=== PATIENT | male | born 1975 | race Caucasian/White ===

== ENCOUNTER 2018-12-17 09:32 | Inpatient (IN) ==
--- NOTE | 2018-12-17 10:05 | Emergency Department Note ---
Disposition Clinical Impression: Anxiety Schizoaffective disorder Qualifiers: Schizoaffective disorder type: unspecified Qualified Code(s): F25.9 - Schizoaffective disorder, unspecified Disposition: Admitted As Inpatient Condition: Undetermined Referrals: Daniel Malik MD [Primary Care Provider] - Forms: ED Satisfaction Letter Time of Disposition: 14:56 General Adult HPI - General Chief complaint: ED Psychiatric Symptoms Stated complaint: anixety Time Seen by Provider: 12/17/18 09:35 Source: patient Mode of arrival: private vehicle Limitations: no limitations Nursing Notes Reviewed: Yes Vital Signs Reviewed: Yes - History of Present Illness HPI Narrative: Patient is a 43 year old male with PMHx of schizoaffective disease presenting with chief complaint of anxiety. Pt states his mother, whom pt resides with, called EMS in order for him to get refills on his meds. The patient states he has been evaluated by [facility] and does have an appointment on December 22 to be evaluated by a new psychiatrist. Pt states he has been off his seroquel for 4 days and reason for ER visit is to get refills. Denies any suicidal or homicidal ideations, denies visual or auditory hallucinations. The patient complains of increased anxiety. He states he is under a lot of stress. He denies fevers or chills, chest pain, shortness breath, abdominal pain, nausea or vomiting, change in bowels. The patient denies alcohol use or illicit drug use. Pain Scale: 0 - Related Data Home Medications Medication Instructions Recorded Confirmed No Known Home Drugs 11/07/18 11/07/18 Allergies Allergy/AdvReac Type Severity Reaction Status Date / Time No Known Allergies Allergy Verified 11/23/18 14:15 All systems ED: reviewed and negative except as stated. Review of Systems: As Per HPI Constitutional: Denies: fever, chills Cardiovascular: Denies: chest pain Respiratory: Denies: cough, dyspnea Gastrointestinal: Denies: abdominal pain, nausea, vomiting, diarrhea Psychiatric: Reports: anxiety. Denies: suicidal thoughts, homicidal thoughts, auditory hallucinations, visual hallucinations Past Medical History - Past Medical History Attestation: Yes The following information was validated with the patient. Source: patient Medical history: Reports: no medical history Surgical history: Reports: non-contributory Psychiatric history: Reports: anxiety, depression, schizophrenia - Social History Smoking Status: Current every day smoker Smokeless Tobacco Status: No Alcohol use: Reports: rarely Drug use: Reports: none Physical Exam - General Limitations: no limitations General appearance: alert, in no apparent distress - Head Head exam: atraumatic, normocephalic - Eye Eye exam: Present: normal appearance, EOMI - ENT ENT exam: normal exam, normal oropharynx - Neck Neck exam: Present: normal inspection, trachea midline - Chest Chest inspection: Present: normal inspection, symmetric chest wall rise - Respiratory Respiratory exam: Present: normal lung sounds bilaterally. Absent: respiratory distress, wheezes - Cardiovascular Cardiovascular exam: Present: regular rate, normal rhythm, normal heart sounds - Abdominal Exam Abdominal exam: Present: soft, Non-Tender. Absent: distention - Extremities Exam Extremities exam: Present: normal capillary refill. Absent: pedal edema, calf tenderness - Neurological Exam Neurological exam: Present: alert, oriented X3 - Psychiatric Psychiatric exam: Present: other (Patient is displaying odd behavior. He will randomly laugh at inappropriate times. He will talk to himself. He appears anxious.) - Skin Skin exam: Present: warm, dry. Absent: diaphoresis, pallor Course Vital Signs Temperature 98.0 F 12/17/18 09:34 Pulse Rate 94 12/17/18 09:34 Respiratory Rate 17 12/17/18 09:34 Blood Pressure 124/87 12/17/18 09:34 O2 Sat by Pulse Oximetry 97 12/17/18 09:34 Temperature 98.0 F 12/17/18 09:34 Pulse Rate 94 12/17/18 09:34 Respiratory Rate 17 12/17/18 09:34 Blood Pressure 124/87 12/17/18 09:34 O2 Sat by Pulse Oximetry 97 12/17/18 09:34 Oxygen Delivery Oxygen Delivery Room Air Medical Decision Making - [facility] Narrative Medical decision making narrative: Patient is presenting with anxiety and has been out of his medications for the past week. He states he is under increased stress. During examination, he is displaying odd behavior. He will laugh at inappropriate times, talk to himself. He is voluntarily here. We will obtain CBC, BMP, acetaminophen, alcohol, salicylate levels, urine drug screen. Once medically cleared, will have psychiatry evaluate the patient. He does have history of schizoaffective disorder. He denies suicidal ideation, homicidal ideation, visual or auditory hallucinations. 11:05 Patient medically cleared. Will have 1A evaluate 14:50 Discussed with 1A who accepts admission. - Medical Records Medical records reviewed: Yes I reviewed the patient's medical records. - Lab Data Lab results reviewed: Yes I reviewed the patient's lab results. Result diagrams: 12/17/18 10:02 12/17/18 10:02 Lab Results 12/17/18 12/17/18 12/17/18 Range/Units 10:02 10:02 10:41 WBC 9.7 (4.3-11.1) K/mcL RBC 4.81 (4.19-5.50) M/mcL Hgb 14.8 (12.9-16.9) g/dL Hct 43.5 (37.5-50.1) % MCV 90.4 (83.0-100.0) fL MCH 30.8 (28.0-33.3) pg MCHC 34.0 (31.6-35.5) g/dL RDW 13.2 (11.5-14.5) % Plt Count 232 (140-400) K/mcL MPV 9.3 L (9.4-12.4) fL Immature Gran % 0.3 (0-4) % Seg Neutrophils % 62.4 % Lymphocytes % 23.6 % Monocytes % 11.6 % Eosinophils % 1.7 % Basophils % 0.4 % Neutrophils # 6.1 (1.6-8.9) K/mcL Lymphocytes # 2.3 (0.6-4.6) K/mcL Monocytes # 1.1 (0.0-1.3) K/mcL Eosinophils # 0.2 (0.0-0.6) K/mcL Basophils # 0.0 (0.0-0.2) K/mcL Sodium 137 (136-145) mEq/L Potassium 4.0 (3.5-5.1) mEq/L Chloride 109 H (98-107) mEq/L Carbon Dioxide 21 L (23-29) mEq/L BUN 19 (6-20) mg/dL Creatinine 0.80 (0.70-1.30) mg/dL Est GFR ( Amer) > 60 (> 60) Est GFR (Non-Af Amer) > 60 (> 60) BUN/Creatinine Ratio 24 (6-26) Glucose 104 (70-105) mg/dL Calculated Osmolality 287 (280-300) Calcium 9.1 (8.6-10.3) mg/dL Urine Color Yellow (Yellow) Urine Clarity Cloudy A (Clear) Urine pH 7.0 (5.0-8.0) pH Units Ur Specific [place] 1.021 (1.010-1.025) Urine Protein 30 H (Neg-Trace) mg/dL Urine Glucose (UA) Normal (Normal) mg/dL Urine Ketones Negative (Negative) mg/dL Urine Blood Negative (Negative) Urine Nitrite Negative (Negative) Urine Bilirubin Negative (Negative) Urine Urobilinogen Normal (Normal) mg/dL Ur Leukocyte Esterase Moderate H (Negative) Urine Microscopic RBC 0-3 (0-3) per hpf Urine Microscopic WBC 0-3 (0-3) per hpf Urine Bacteria Few (None-Few) per hpf Salicylates < 2.5 L (15.0-30.0) mg/dL Urine Opiates Screen (Lsyoda=154) ng/mL Ur Buprenorphine Scrn (Cutoff=5) ng/mL Acetaminophen < 10 L (10-20) mcg/mL Ur Barbiturates Screen (Udkoqj=103) ng/mL Ur Phencyclidine Scrn (Cutoff=25) ng/mL Ur Amphetamines Screen (Ptbijy=1386) ng/mL U Benzodiazepines Scrn (Qjmqbm=995) ng/mL Urine Cocaine Screen (Cutoff= 300) ng/mL U Marijuana (THC) Screen (Cutoff = 50) ng/mL Ur Drug Screen Interp Ethyl Alcohol < 10 (Less than 10) mg/dL 12/17/18 Range/Units 10:41 WBC (4.3-11.1) K/mcL RBC (4.19-5.50) M/mcL Hgb (12.9-16.9) g/dL Hct (37.5-50.1) % MCV (83.0-100.0) fL MCH (28.0-33.3) pg MCHC (31.6-35.5) g/dL RDW (11.5-14.5) % Plt Count (140-400) K/mcL MPV (9.4-12.4) fL Immature Gran % (0-4) % Seg Neutrophils % % Lymphocytes % % Monocytes % % Eosinophils % % Basophils % % Neutrophils # (1.6-8.9) K/mcL Lymphocytes # (0.6-4.6) K/mcL Monocytes # (0.0-1.3) K/mcL Eosinophils # (0.0-0.6) K/mcL Basophils # (0.0-0.2) K/mcL Sodium (136-145) mEq/L Potassium (3.5-5.1) mEq/L Chloride (98-107) mEq/L Carbon Dioxide (23-29) mEq/L BUN (6-20) mg/dL Creatinine (0.70-1.30) mg/dL Est GFR ( Amer) (> 60) Est GFR (Non-Af Amer) (> 60) BUN/Creatinine Ratio (6-26) Glucose (70-105) mg/dL Calculated Osmolality (280-300) Calcium (8.6-10.3) mg/dL Urine Color (Yellow) Urine Clarity (Clear) Urine pH (5.0-8.0) pH Units Ur Specific [place] (1.010-1.025) Urine Protein (Neg-Trace) mg/dL Urine Glucose (UA) (Normal) mg/dL Urine Ketones (Negative) mg/dL Urine Blood (Negative) Urine Nitrite (Negative) Urine Bilirubin (Negative) Urine Urobilinogen (Normal) mg/dL Ur Leukocyte Esterase (Negative) Urine Microscopic RBC (0-3) per hpf Urine Microscopic WBC (0-3) per hpf Urine Bacteria (None-Few) per hpf Salicylates (15.0-30.0) mg/dL Urine Opiates Screen Negative (Btqnog=647) ng/mL Ur Buprenorphine Scrn Negative (Cutoff=5) ng/mL Acetaminophen (10-20) mcg/mL Ur Barbiturates Screen Negative (Ylnuiz=411) ng/mL Ur Phencyclidine Scrn Negative (Cutoff=25) ng/mL Ur Amphetamines Screen Negative (Wkztqa=4270) ng/mL U Benzodiazepines Scrn Negative (Dgctdk=766) ng/mL Urine Cocaine Screen Negative (Cutoff= 300) ng/mL U Marijuana (THC) Screen Negative (Cutoff = 50) ng/mL Ur Drug Screen Interp See Below Ethyl Alcohol (Less than 10) mg/dL Attestation Statement - Attestation Attestation: Patient was seen with resident physician. I reviewed the history, physical, assessment and plan, and agree with the findings. I also personally evaluated this patient and had [id number] time with this patient. 43-year-old male presents to the emergency department out of his psych meds for 4 days now presenting with anxiety. Patient states he said some occasional spring rtness of breath. He is a smoker. He says is not worse than usual. He denies hallucinations, but he was seen multiple times talking to himself while in the room. Denies fevers or chills nausea vomiting diarrhea. Review of systems as above remainder negative. Physical exam vital signs are stable. ENT is unremarkable. Heart regular rhythm and rate. Lungs clear. Adamant soft nontender. Extremities unremarkable. Neurologically alert and oriented without focal deficits. Skin no rashes. Psych anxious questionable hallucinations. ED course. We will do psych workup including basic labs. We will also have one a come evaluate the patient for possible medication adjustment renewal or f urther intervention as indicated. Initially he did not meet criteria on arrival for involuntary admission status. Hemodynamically he remained stable while in the emergency department. After psych evaluation they did also find that the patient was having some hallucinations issues. Additionally he is been off his psychiatric medication. Hemodynamically he was stable may wanted to admit him to the psychiatric unit which is what we did. Agree with the resident physician assessment and plan.
[2018-12-17 10:16] LABS: Basophils % 0.4 %; Eosinophils # 0.2 K/mcL (0.0-0.6); Eosinophils % 1.7 %; Hematocrit 43.5 % (37.5-50.1); Hemoglobin 14.8 g/dL (12.9-16.9); Immature Granulocytes % 0.3 % (0-4); Lymphocytes # 2.3 K/mcL (0.6-4.6); Lymphocytes % 23.6 %; Mean Corpuscular Hemoglobin 30.8 pg (28.0-33.3); Mean Corpuscular Volume 90.4 fL (83.0-100.0); Mean Platelet Volume 9.3 fL (9.4-12.4); Monocytes # 1.1 K/mcL (0.0-1.3); Monocytes % 11.6 %; Neutrophils # 6.1 K/mcL (1.6-8.9); Platelet Count 232 K/mcL (140-400); Red Blood Count 4.81 M/mcL (4.19-5.50); Red Cell Distribution Width 13.2 % (11.5-14.5); Segmented Neutrophils % 62.4 %; White Blood Count 9.7 K/mcL (4.3-11.1)
[2018-12-17 10:52] LABS: Bilirubin,Urine Negative (Negative); Blood,Urine Negative (Negative); Clarity,Urine Cloudy (Clear); Color,Urine Yellow (Yellow); Glucose,Urine (UA) Normal (Normal); Ketones,Urine Negative (Negative); Leukocyte Esterase,Urine Moderate (Negative); Nitrite,Urine Negative (Negative); Protein,Urine 30 mg/dL (Neg-Trace); Specific Gravity,Urine 1.021 (1.010-1.025); Urobilinogen,Urine Normal (Normal)
[2018-12-17 10:55] LABS: Acetaminophen < 10 mcg/mL (10-20); BUN/Creatinine Ratio 24 (6-26); Blood Urea Nitrogen 19 mg/dL (6-20); Calcium 9.1 mg/dL (8.6-10.3); Carbon Dioxide 21 mEq/L (23-29); Chloride 109 mEq/L (98-107); Ethanol < 10 mg/dL (Less than 10); Glucose 104 mg/dL (70-105); Osmolality,Calculated 287 (280-300); Salicylate < 2.5 mg/dL (15.0-30.0); Sodium 137 mEq/L (136-145); eGFR For African Americans > 60 (> 60); eGFR For Non-African Americans > 60 (> 60)
[2018-12-17 11:00] LABS: Bacteria,Urine Few per hpf (None-Few); RBC,Urine 0-3 per hpf (0-3); WBC,Urine 0-3 per hpf (0-3)
[2018-12-17 11:01] LABS: Amphetamine Screen,Urine Negative ng/mL (Cutoff=1000); Barbiturate Screen,Urine Negative ng/mL (Cutoff=200); Benzodiazepines Screen,Urine Negative ng/mL (Cutoff=200); Cannabinoid Screen,Urine Negative ng/mL (Cutoff = 50); Cocaine Screen,Urine Negative ng/mL (Cutoff= 300); Opiate Screen,Urine Negative ng/mL (Cutoff=300); Phencyclidine Screen,Urine Negative ng/mL (Cutoff=25)
[2018-12-17] MEDS ORDERED: MOM Conc 10 ML UD.LIQ PO PRN (17:06)
[2018-12-17] MEDS ORDERED: Mag Hydrox/Al Hydrox/Simeth 30 ML UDC PO PRN (17:06)
[2018-12-17] MEDS ORDERED: *HR* LORazepam 2 MG/ML VIAL IM PRN (17:06)
[2018-12-17] MEDS ORDERED: *HR* LORazepam 1 MG TABLET PO PRN (17:06)
[2018-12-17] MEDS ORDERED: traZODone 50 MG TABLET PO PRN (17:06)
[2018-12-17] MEDS ORDERED: hydrOXYzine pamoate 25 MG CAPSULE PO PRN (17:06)
[2018-12-17] MEDS ORDERED: Haloperidol Lactate 5 MG/ML VIAL IM PRN (17:06)
[2018-12-17] MEDS ORDERED: Acetaminophen 325 MG TABLET PO PRN (17:06)
[2018-12-17] MEDS ORDERED: *HR* LORazepam 1 MG TABLET PO ONE (17:37)
[2018-12-18] MEDS ORDERED: *HR* LORazepam 1 MG TABLET PO PRN (09:04)
[2018-12-18] MEDS ORDERED: *HR* LORazepam 0.5 MG TABLET ONE (09:08)
--- NOTE | 2018-12-18 09:13 | Psychiatry History & Physical ---
Date of Encounter: 12/18/18 Time of Encounter: 09:00 History of Present Illness Patient Stated Chief Complaint: "I need to get out of here" Medicare Admission Attestation: For traditional Medicare patients the provided hospital inpatient services are reasonable and necessary and in the case of services not specified as inpatient-only under 42 CFR 419.22 (n), that they are appropriately provided as inpatient services in accordance 42 CFR 412.3. For Critical Access Hospital the patient may reasonably be expected to be discharged or transferred to a hospital within 96 hours after admission to the Critical Access Hospital. Admitted From: Emergency Dept Plans for Post Hospital Care: Home History of Present Illness: Mr. New is a 43 year old male who presented with extensive history of schizophrenia who apparently is off medications and has decompensated. The patient has been apparently experiencing auditory and command hallucinations. In the emergency room he was talking to people who were not there. He is unable to provide an accurate history secondary to what appears to be a decompensated mental state. The patient was initially agreeable to inpatient stabilization and became very agitated in the emergency room pink sliped him. Last evening he was belligerent when he got to the unit and required emergency medications. This morning he is once again very agitated. He threw down his tray demanding to leave. He was clearly responding to internal stimuli and appeared paranoid of staff attendance. He would not answer specific questions other than to demand that he leave because his daughter's birthday is on December 22 and he did not want to miss it. He said he was not familiar with medication such as Haldol and Prolixin when I offered these as emergency medications however he was agreeable to take something to help him "knock me out". He continued to yell and threaten staff. Past Med Surg Social Fam HX - Past Medical History Medical history: no medical history - Past Psychiatric History Psychiatric history: Reports: schizophrenia, previous psychiatric hospitalization. Denies: prior suicide attempt Past psychiatric history details: He denies prior suicide attempts. He has numerous prior psychiatric hospitalizations including Hospital for psychiatry within the past few weeks. He has run out of his Seroquel. He could not come out of the medications he tried in the past. He denied prior suicide attempts. Family psychiatric history: No Family History of Suicide: None - Past Surgical History Surgical History: non-contributory - Social History Smoking Status: Current every day smoker Smokeless Tobacco Status: No Alcohol use: rarely Drug use: none Occupational status: disabled Current living situation: With Family Activity Level: Independent ambulation Recent Out of Country Travel Within the Last 8 Weeks: No Exposure or Possible Exposure to Illness During Travel: No Medications & Allergies No Known Home Drugs 11/07/18 [History] Allergy/AdvReac Type Severity Reaction Status Date / Time No Known Allergies Allergy Verified 11/23/18 14:15 Review of Systems Constitutional: Denies: fever Eyes: Denies: eye pain Ears, Nose, Throat: Denies: ear pain Cardiovascular: Denies: chest pain Respiratory: Denies: cough Gastrointestinal: Denies: abdominal pain Genitourinary male: Denies: urgency Musculoskeletal: Denies: back pain Integumentary: Denies: rash Neurological: Denies: headache Psychiatric: Reports: homicidal ideation, auditory hallucinations, visual hallucinations, irritability, mood swings Endocrine: Denies: fatigue Hematologic/Lymphatic: Denies: easy bleeding Allergic/Immunologic: Denies: facial swelling Exam - HEENT Head exam IM: Present: atraumatic Eye exam IM: Present: EOMI ENT exam IM: Present: mucous membranes moist - Neurological Neurological exam: Present: CN II-XII intact (Grossly) - Respiratory Respiratory exam IM: Absent: respiratory distress - GI/Abdominal GI/Abdominal exam IM: Present: no peritoneal signs - Extremities Extremities exam IM: Present: full ROM - Skin Skin exam IM: Absent: abrasion - Constitutional Vitals: Temp Pulse Resp BP Pulse Ox 98.0 F 94 17 124/87 97 12/17/18 09:34 12/17/18 09:34 12/17/18 09:34 12/17/18 09:34 12/17/18 09:34 General appearance: age & developmentally appropriate, disheveled - Musculoskeletal Gait: brisk Station: stiff Strength & Tone: normal for patient - Psychiatric Patient Orientation: Yes Person, Yes Place Level of alertness: Alert Behavior: agitated, hostile, suspicious Psychomotor activity: Increased Eye Contact: Minimal Contact Mood Description: Angry, Irritable Patient description of mood: "Pissed" Affect description: labile Speech Volume: Loud Speech pattern: excessive Language & Vocabulary: limited Thought Process: Tangential Thought Content: Yes Homicidal ideation, Yes Paranoid delusion Perceptual Disturbances: Yes Auditory hallucinations, Yes Visual hallucinations Attention Span Ability: Unable to Focus, Unable to Sustain Attention Memory Description: Recent Impaired, Remote Impaired Patient Reliability: Not Reliable Historian Fund of knowledge: Yes average Intelligence Estimate: Average Judgment: Poor Insight: None Results - Drug Levels and Toxicology Drug Levels and Toxicology: Drug Levels and Toxicity 12/17/18 12/17/18 10:02 10:41 Urine Opiates Screen Negative Acetaminophen < 10 L Ur Barbiturates Screen Negative Ur Phencyclidine Scrn Negative Ur Amphetamines Screen Negative U Benzodiazepines Scrn Negative Urine Cocaine Screen Negative U Marijuana (THC) Screen Negative Ethyl Alcohol < 10 - Labs Labs: Laboratory Last Values WBC 9.7 K/mcL (4.3-11.1) 12/17/18 10:02 RBC 4.81 M/mcL (4.19-5.50) 12/17/18 10:02 Hgb 14.8 g/dL (12.9-16.9) 12/17/18 10:02 Hct 43.5 % (37.5-50.1) 12/17/18 10:02 MCV 90.4 fL (83.0-100.0) 12/17/18 10:02 MCH 30.8 pg (28.0-33.3) 12/17/18 10:02 MCHC 34.0 g/dL (31.6-35.5) 12/17/18 10:02 RDW 13.2 % (11.5-14.5) 12/17/18 10:02 Plt Count 232 K/mcL (140-400) 12/17/18 10:02 MPV 9.3 fL (9.4-12.4) L 12/17/18 10:02 Immature Gran % 0.3 % (0-4) 12/17/18 10:02 Seg Neutrophils % 62.4 % 12/17/18 10:02 Lymphocytes % 23.6 % 12/17/18 10:02 Monocytes % 11.6 % 12/17/18 10:02 Eosinophils % 1.7 % 12/17/18 10:02 Basophils % 0.4 % 12/17/18 10:02 Neutrophils # 6.1 K/mcL (1.6-8.9) 12/17/18 10:02 Lymphocytes # 2.3 K/mcL (0.6-4.6) 12/17/18 10:02 Monocytes # 1.1 K/mcL (0.0-1.3) 12/17/18 10:02 Eosinophils # 0.2 K/mcL (0.0-0.6) 12/17/18 10:02 Basophils # 0.0 K/mcL (0.0-0.2) 12/17/18 10:02 Sodium 137 mEq/L (136-145) 12/17/18 10:02 Potassium 4.0 mEq/L (3.5-5.1) 12/17/18 10:02 Chloride 109 mEq/L (98-107) H 12/17/18 10:02 Carbon Dioxide 21 mEq/L (23-29) L 12/17/18 10:02 BUN 19 mg/dL (6-20) 12/17/18 10:02 Creatinine 0.80 mg/dL (0.70-1.30) 12/17/18 10:02 Est GFR ( Amer) > 60 (> 60) 12/17/18 10:02 Est GFR (Non-Af Amer) > 60 (> 60) 12/17/18 10:02 BUN/Creatinine Ratio 24 (6-26) 12/17/18 10:02 Glucose 104 mg/dL (70-105) 12/17/18 10:02 Calculated Osmolality 287 (280-300) 12/17/18 10:02 Calcium 9.1 mg/dL (8.6-10.3) 12/17/18 10:02 Urine Color Yellow (Yellow) 12/17/18 10:41 Urine Clarity Cloudy (Clear) A 12/17/18 10:41 Urine pH 7.0 pH Units (5.0-8.0) 12/17/18 10:41 Ur Specific [place] 1.021 (1.010-1.025) 12/17/18 10:41 Urine Protein 30 mg/dL (Neg-Trace) H 12/17/18 10:41 Urine Glucose (UA) Normal mg/dL (Normal) 12/17/18 10:41 Urine Ketones Negative mg/dL (Negative) 12/17/18 10:41 Urine Blood Negative (Negative) 12/17/18 10:41 Urine Nitrite Negative (Negative) 12/17/18 10:41 Urine Bilirubin Negative (Negative) 12/17/18 10:41 Urine Urobilinogen Normal mg/dL (Normal) 12/17/18 10:41 Ur Leukocyte Esterase Moderate (Negative) H 12/17/18 10:41 Urine Microscopic RBC 0-3 per hpf (0-3) 12/17/18 10:41 Urine Microscopic WBC 0-3 per hpf (0-3) 12/17/18 10:41 Urine Bacteria Few per hpf (None-Few) 12/17/18 10:41 Salicylates < 2.5 mg/dL (15.0-30.0) L 12/17/18 10:02 Urine Opiates Screen Negative ng/mL (Uscrbr=852) 12/17/18 10:41 Ur Buprenorphine Scrn Negative ng/mL (Cutoff=5) 12/17/18 10:41 Acetaminophen < 10 mcg/mL (10-20) L 12/17/18 10:02 Ur Barbiturates Screen Negative ng/mL (Bzwury=875) 12/17/18 10:41 Ur Phencyclidine Scrn Negative ng/mL (Cutoff=25) 12/17/18 10:41 Ur Amphetamines Screen Negative ng/mL (Fecqrr=4158) 12/17/18 10:41 U Benzodiazepines Scrn Negative ng/mL (Prtmef=037) 12/17/18 10:41 Urine Cocaine Screen Negative ng/mL (Cutoff= 300) 12/17/18 10:41 U Marijuana (THC) Screen Negative ng/mL (Cutoff = 50) 12/17/18 10:41 Ur Drug Screen Interp See Below 12/17/18 10:41 Ethyl Alcohol < 10 mg/dL (Less than 10) 12/17/18 10:02 Assessment and Plan (1) Schizoaffective disorder Current visit: Yes Status: Acute Plan: Admit inpatient for safety and stabilization, Close observation, Suicide Precautions per unit protocol, Encourage participation in unit milieu, Group Therapy, Monitor sleep, Monitor appetite Additional Plan: Restart home Seroquel 400 mg by mouth daily at bedtime. Consider a mood stabilizer in the future. Encourage group attendance. Reviewed Interval hx Review any current labs Pt had an opportunity to ask questions and discuss current treatment plan. Supportive therapy was provided Pt encouraged to consider group or individual therapy Pt was in agreement with treatment plan. Pt was educated on the risks benefits and side effects of current medications and alternatives as well as the risks and benefits of no medication. AIMS = 0 lipids and hgba1c once more, and will be willing to accept the blood draw. Risks, benefits, side effects, alternatives discussed w/pt: Yes Patient agreeable to treatment: Yes Plans for Post Hospital Care: Home Estimated Length of Stay (Days): 3 Qualifiers: Schizoaffective disorder type: bipolar Qualified Code(s): F25.0 - Schizoaffective disorder, bipolar type
[2018-12-18] MEDS ORDERED: *HR* LORazepam 0.5 MG TABLET PO ONE (09:29)
[2018-12-18 22:29] VITALS: BP 121/79
--- NOTE | 2018-12-19 13:26 | Discharge Summary ---
Date of Encounter: 12/19/18 Time of Encounter: 13:24 Diagnosis - Discharge Diagnosis (1) Schizoaffective disorder Status: Acute Qualifiers: Schizoaffective disorder type: bipolar Qualified Code(s): F25.0 - Schizoaffective disorder, bipolar type Medications - Discharge Medications Prescriptions: Quetiapine Fumarate [Seroquel] 400 mg PO HS #120 tablet Quetiapine Fumarate [Seroquel] 400 mg PO HS #120 tablet 12/19/18 [Rx] Allergy/AdvReac Type Severity Reaction Status Date / Time No Known Allergies Allergy Verified 11/23/18 14:15 Results Procedures and tests throughout hospitalization: Completed Lab Orders Category Date Time Status Acetaminophen Stat Lab 12/17/18 10:02 Completed Basic Metabolic Panel Stat Lab 12/17/18 10:02 Completed Complete Blood Count [HEME] Stat Lab 12/17/18 10:02 Completed Drug Screen, Urine [UCHEM] Stat Lab 12/17/18 10:41 Completed Ethanol Stat Lab 12/17/18 10:02 Completed Salicylate Stat Lab 12/17/18 10:02 Completed Urinalysis reflex Microscopic [URIN] Stat Lab 12/17/18 10:41 Completed Provider Date of admission: 12/17/18 15:13 Primary care physician: PCP NONE Discharging clinician: Jennifer Reyes Psychiatry Exam - Constitutional Vitals: Temp Pulse Resp BP Pulse Ox 98 F 111 16 121/79 98 12/19/18 09:00 12/19/18 09:00 12/19/18 09:00 12/19/18 09:00 12/19/18 09:00 General appearance: age & developmentally appropriate, well-groomed, well- nourished - Musculoskeletal Gait: normal Station: relaxed Strength & Tone: normal for patient - Psychiatric Patient Orientation: Yes Person, Yes Time, Yes Place Level of alertness: Alert Behavior: calm, cooperative Psychomotor activity: Normal Eye Contact: Maintains Eye Contact Mood Description: Anxious Affect description: congruent with mood Speech Volume: Normal Speech pattern: normal rate, normal rhythm, normal tone, fluent, spontaneous Language & Vocabulary: consistent with education Thought Process: Linear, Goal Oriented Thought Content: No Suicidal ideation, No Homicidal ideation, No Overt delusions Perceptual Disturbances: No Auditory hallucinations, No Visual hallucinations Attention Span Ability: Capable of Focused Attention Memory Description: Grossly Intact Patient Reliability: Questionable Historian Fund of knowledge: Yes abstraction ability, Yes aware of current events Intelligence Estimate: Average Judgment: Limited Insight: Partial Hospital Course Hospital course: Mr. New is a 43 year old male who was admitted for ronnie and psychosis. Client has a long history of mental illness and was recently in [facility] for similar symptoms. Client was discharged on 400mg of Seroquel which he reports really helped him. He was scheduled follow up at [facility]. Client states he had his therapy appointment at [facility] but he's not scheduled to see the psychiatrist until December 22. Client states he ran out of his Seroquel approximately 5 days ago, stating [facility] did not give him quite enough to get him through his first prescriber appointment. Client has been living with family but family made him come to the ER after he ran out of meds and his symptoms returned. Client was initially quite agitated. He required emergency medications three times after arriving to the unit. He was hostile toward staff and actively psychotic, responding to internal stimuli. On eval today client is much calmer. He is able to have a conversation with good eye contact. No responding to internal stimuli. Client denies any current or past SI, intent, or plan. He has a history of being aggressive off meds but he has been calm since the emergency meds have taken effect. Slightly paranoid but not overtly psychotic anymore. Pleasant when talking with this ad writer. Staff were able to verify client does have an appointment with his prescriber on December 22 which is three days from now. He will therefore have quick follow-up and he will be discharged on enough Seroquel to get him through this appointment. His tox screen was negative and client denies any drug use beyond occasional THC. Clinically improved and denying SI/HI/AH/VH. Will plan to discharge to family today. If needs readmitted in the future may want to consider a higher level of care as staff report client was difficult to manage in this environment. Total time spent with client greater than 30 minutes. Patient was educated of his diagnosis and the risks, benefits, and side effects of this treatment and alternative treatment options and was monitored for responsiveness and side effects. Mood, anxiety, sleep, appetite, and interest improved, as did future orientation. Self-harm thoughts subsided, thinking cleared, psychosis resolved, and mood stabilized. Patient was able to attend both individual and group therapy sessions as well as meeting with the psychiatrist daily and urged to discuss any medication or treatment issues or other concerns. The patient was educated primarily by verbal means about their diagnosis and manifestations in their life. The option for treatment including group and individual therapy programming was offered to the patient in the use of medications with all their potential risks, benefits, and side effects were discussed with the patient at length. The patient was given the opportunity to ask questions and was noted to participate in the treatment in the planning process. The patient felt ready and eager to be discharged from the inpatient psychiatric unit to continue on with treatment as an outpatient. The patient agreed that he is safe for this disposition. The patient was considered to be able to participate in informed consent and decision making with respect to medical, legal, and financial issues of the time of discharge. At the time of discharge the patient adamantly denied any concerns for lethality including suicidal or homicidal thoughts ideations or plans and was future oriented toward ongoing mental health care, medical follow-up and sobriety. - Time Spent with Patient Total time spent providing and/or coordinating discharge services: Greater than 30 minutes Assessment and Plan - Patient/Caregiver Discharge Instructions Activity: resume usual activities as tolerated Diet: regular diet - Follow up Plan Follow up with: [facility] [Outside] - 12/28/18 9:00 am (You have an appointment scheduled with Sonia Moore on Friday, December 28, 2018 at 9:00 AM for Counseling and Case Management. Please contact the office at least 24 hours in advance if you are unable to keep your appointment(s). ) [facility] [Outside] - 12/22/18 4:00 pm (You have an appointment scheduled for December at 4:[address] Angel Luis Marte for medication management. Please note that this appointment is at the [facility] location beside [facility] and across from [facility] Please contact the office at least 24 hours in advance if you are unable to keep your appointment(s). ) Functional capacity at discharge: independent ambulation Overall status at discharge: Stable Disposition: Home, Self-Care Quality - Multiple Antipsychotics Patient discharged on 2 or more antipsychotic medications: No Procedures - Procedures Procedures: Medication Management, Crisis Stabilization, Supportive Therapy, Group Therapy
== END 2018-12-19 15:22 | disposition home or self-care (01) | DRG 750 ==
LOC: EMEROOARM 09:32 → 1ANU 15:13
PROVIDERS: ADMIT Psychiatry & Neurology Psychiatry; ATTEND Psychiatry & Neurology Psychiatry